=== PATIENT | male | born 1950 | race African-American/Black ===

== ENCOUNTER 2019-12-17 17:02 | Emergency (ER) | payer MEDICARE, MEDICAID ==
[~2019-12-17] VITALS: Ht 172.7 cm; Wt 70.0 kg
[2019-12-17 23:49] VITALS: BP 124/73
== END 2019-12-17 23:50 | disposition home or self-care (01) ==
LOC: ER 17:02
DX: F10.129 Alcohol abuse with intoxication, unspecified (principal); I10 Essential (primary) hypertension; F12.10 Cannabis abuse, uncomplicated; F14.10 Cocaine abuse, uncomplicated; Y90.9 Presence of alcohol in blood, level not specified
CPT/HCPCS: 99285